=== PATIENT | male | born 2000 | race Hispanic/Latino ===

== ENCOUNTER 2021-07-27 09:35 | Emergency (ER) | payer BC ==
[~2021-07-27] VITALS: Ht 172.7 cm; Wt 70.3 kg
== END 2021-07-27 11:22 | disposition home or self-care (01) ==
LOC: FSED 10:29
DX: S16.1XXA Strain of muscle, fascia and tendon at neck level, initial encounter (principal); X50.1XXA Overexertion from prolonged static or awkward postures, initial encounter; F17.210 Nicotine dependence, cigarettes, uncomplicated
CPT/HCPCS: 83518; 87400; 99282